=== PATIENT | male | born 1985 ===

== ENCOUNTER 2017-04-20 10:12 | Emergency (ER) | payer OTHER ==
[~2017-04-20] VITALS: Ht 175.3 cm; Wt 108.9 kg
[2017-04-20] MEDS ORDERED: ENALAPRIL MALEA10 MG BC (10:47)
== END 2017-04-20 22:50 | disposition home or self-care (01) ==
LOC: ER 10:12
DX: R07.89 Other chest pain (principal); F06.4 Anxiety disorder due to known physiological condition

== ENCOUNTER → 2021-04-14 | Outpatient (CLI) | payer OTHER ==
[~2021-04-14] MED LIST: ENALAPRIL MALEA10 MG BC
== END | disposition home or self-care (01) ==
LOC: LAB 13:32
DX: Z03.818 Encounter for observation for suspected exposure to other biological agents ruled out (principal)